=== PATIENT | female | born 1995 | race Caucasian/White ===

== ENCOUNTER 2022-08-20 00:25 | Emergency (ER) | payer MEDICAID ==
[~2022-08-20] VITALS: Ht 157.5 cm; Wt 104.0 kg
[2022-08-20 00:47] VITALS: BP 116/76
[2022-08-20 01:54] LABS: BASOPHILS % 0.6 % (0.0-2.0); HEMOGLOBIN. 13.2 g/dL (12.0-16.0); LYMPHOCYTES % 24.9 % (20.0-50.0); MEAN CORPUSCULAR HEMOGLOBIN 29.5 pg (28.0-32.0); MEAN CORPUSCULAR VOLUME 89.6 fL (81.0-99.0); MEAN PLATELET VOLUME 6.8 fl (7.4-10.4); MONOCYTES % 6.5 % (2.0-8.0); PLATELET 314 x1000/uL (130-400); RED BLOOD CELL COUNT 4.46 mill/uL (4.2-5.4); RED CELL DISTRIBUTION WIDTH 14.2 % (11.6-14.6)
[2022-08-20 02:02] LABS: CHLORIDE 106 mEq/L (98-107)
[2022-08-20 02:19] LABS: CLARITY URINE CLOUDY (CLEAR); COLOR URINE YELLOW (YELLOW); KETONES URINE 1+ (NEGATIVE); LEUKOCYTE ESTERASE URINE 1+ (NEGATIVE); NITRITE URINE NEGATIVE (NEGATIVE); OCCULT BLOOD URINE NEGATIVE (NEGATIVE); PROTEIN URINE 1+ (NEGATIVE); SPECIFIC GRAVITY URINE 1.028 (1.005-1.030); UROBILINOGEN URINE 0.2 E.U./dL (0.2-1.0)
[2022-08-20] MEDS ORDERED: ONDANSETRON 4MG ODT PO ONE (03:45)
[2022-08-20] MEDS ORDERED: SULF1TAB48 MT (03:59)
[2022-08-20] MEDS ORDERED: LOPE2CAP MT (04:00)
== END 2022-08-20 04:59 | disposition home or self-care (01) ==
LOC: ER 00:25
DX: K52.9 Noninfective gastroenteritis and colitis, unspecified (principal); N39.0 Urinary tract infection, site not specified
CPT/HCPCS: 36415; 80053; 81003; 81025; 83690; 85025; 99283; Q0162

== ENCOUNTER 2024-10-28 15:48 | Emergency (ER) | payer MEDICAID ==
[~2024-10-28] VITALS: Ht 157.5 cm; Wt 104.0 kg
[~2024-10-28 15:48] MED LIST: LOPE2CAP MT; SULF1TAB48 MT
[2024-10-28 15:56] VITALS: O2SAT 100
[2024-10-28 16:01] VITALS: BP 149/95; PULSE 84; RESP 16; TEMP 36.7; O2SAT 99
[2024-10-28 21:04] VITALS: TEMP 98
[2024-10-28] MEDS: ACETAMINOPHEN 325MG TABLET PO ONE (21:04)
[2024-10-28] MEDS ORDERED: LIDO-53 TP (21:16)
[2024-10-28] MEDS ORDERED: NAPR-1176 MT (21:16)
== END 2024-10-28 22:15 | disposition home or self-care (01) ==
LOC: ER 15:48
DX: M79.671 Pain in right foot (principal)
CPT/HCPCS: 73610; 73630; 29515; 99284; A6449; Z7610